=== PATIENT | female | born 1940 | race Caucasian/White ===

== ENCOUNTER 2018-01-08 15:16 | Emergency (ER) | payer MEDICARE, OTHER ==
[2018-01-08 16:01] VITALS: BP 179/50
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
== END 2018-01-08 16:31 | disposition home or self-care (01) ==
LOC: UCCORT 15:16
DX: I10 Essential (primary) hypertension (principal); Z88.8 Allergy status to other drugs, medicaments and biological substances
CPT/HCPCS: 99211; G0463